=== PATIENT | male | born 1960 | race African-American/Black ===

== ENCOUNTER 2016-07-12 09:47 | Outpatient (CLI) | payer BC ==
--- NOTE | 2016-07-12 11:35 | DIAGNOSTIC IMAGING REPORT ---
PROCEDURE: CT ABDOMEN W/WO CONTRAST CLINICAL INDICATION: ABNORMAL US OF THE LIVER TECHNIQUE: Axial images were obtained through the entire abdomen before and after 125 ml Isovue 300 IV. Delayed images were obtained at 15 minutes. Sagittal and coronal reformations. COMPARISON: Abdominal ultrasound from [facility] 07/05/2016 FINDINGS: There is a 4 x 3.3 cm hypodense lesion in the left hepatic lobe corresponding to the ultrasound finding, with peripheral enhancement and complete filling in on the 15-minute delayed images. Findings most consistent with a hemangioma. There is an additional 7 mm high lesion in the right hepatic lobe inferiorly, which also fills and on the delayed images, which may represent an additional hemangioma. The gallbladder, pancreas, spleen and adrenal glands are normal. Normal kidneys without calculi or hydronephrosis. Normal enhancement of the kidneys. Normal abdominal aorta. Normal appendix. Nonspecific bowel gas pattern. Moderate degenerative changes of the spine. IMPRESSION: 1. 4 cm left hepatic lobe hemangioma 2. 7 mm right hepatic lobe lesion suggestive of an additional hemangioma All CT scans at this facility use dose modulation, iterative reconstruction, and/or weight-based dosing when appropriate to reduce radiation dose to as low as reasonably achievable.
--- NOTE | 2016-07-12 11:35 | DIAGNOSTIC IMAGING REPORT ---
PROCEDURE: CT ABDOMEN W/WO CONTRAST CLINICAL INDICATION: ABNORMAL US OF THE LIVER TECHNIQUE: Axial images were obtained through the entire abdomen before and after 125 ml Isovue 300 IV. Delayed images were obtained at 15 minutes. Sagittal and coronal reformations. COMPARISON: Abdominal ultrasound from [facility] 07/05/2016 FINDINGS: There is a 4 x 3.3 cm hypodense lesion in the left hepatic lobe corresponding to the ultrasound finding, with peripheral enhancement and complete filling in on the 15-minute delayed images. Findings most consistent with a hemangioma. There is an additional 7 mm high lesion in the right hepatic lobe inferiorly, which also fills and on the delayed images, which may represent an additional hemangioma. The gallbladder, pancreas, spleen and adrenal glands are normal. Normal kidneys without calculi or hydronephrosis. Normal enhancement of the kidneys. Normal abdominal aorta. Normal appendix. Nonspecific bowel gas pattern. Moderate degenerative changes of the spine. IMPRESSION: 1. 4 cm left hepatic lobe hemangioma 2. 7 mm right hepatic lobe lesion suggestive of an additional hemangioma All CT scans at this facility use dose modulation, iterative reconstruction, and/or weight-based dosing when appropriate to reduce radiation dose to as low as reasonably achievable.
== END 2016-07-12 23:00 ==
LOC: CT SRH 09:47
DX: R93.2 Abnormal findings on diagnostic imaging of liver and biliary tract (principal); D18.03 Hemangioma of intra-abdominal structures